=== PATIENT | female | born 1985 | race Caucasian/White ===

== ENCOUNTER → 2018-06-13 | Outpatient (CLI) | payer BC ==
--- NOTE | 2018-06-13 16:53 | RADIOLOGY IMAGING REPORT ---
[place] [facility] [place] NAME: Catherine Santoyo : 1985 MR: [id number] V: [id number] EXAM DATE: ORDERING PHYSICIAN: JENN FARAH TECHNOLOG[place] [facility] [place] : 1985 Visit/Account:[id number] Date of Sevice: 06/13/2018 LUMBAR SPINE 2 OR 3 VIEW Indication: Low back pain and radiculopathy Comparison: None Findings: The vertebral bodies and posterior elements are intact. Disc spaces are normal. Facets ar e normal. IMPRESSION: Normal lumbar spine radiograph. Report Dictated By: Adolfo Harper at 06/13/2018 4:48 PM Report E-Signed By: Adolfo Harper at 06/13/2018 4:49 PM WSN:[id number]
== END ==
LOC: RAD 16:17
PROVIDERS: ATTEND Physician Assistant Medical
DX: M54.16 Radiculopathy, lumbar region (principal)
CPT/HCPCS: 72100